=== PATIENT | female | born 1980 | race Hispanic/Latino ===

== ENCOUNTER 2020-02-19 19:01 | Emergency (ER) | payer OTHER, SELFPAY ==
[2020-02-20 12:09] LABS: SARS-CoV-2 MS2 Positive; SARS-CoV-2 N Gene Positive; SARS-CoV-2 S Gene Positive; SARS-CoV-2 orf1ab Positive
== END 2020-02-19 19:49 | disposition home or self-care (01) ==
LOC: ERS 19:01
DX: U07.1 COVID-19 (principal)
CPT/HCPCS: 87635; U0003